=== PATIENT | female | born 1950 | race Two or more races ===

== ENCOUNTER 2018-11-13 13:55 | Outpatient (CLI) | payer MEDICARE | END 2018-11-13 23:59 | disposition home health service (06) | LOC: WOU 13:55 | PROVIDERS: ATTEND Podiatrist Foot & Ankle Surgery | DX: I89.0 Lymphedema, not elsewhere classified (principal); L97.812 Non-pressure chronic ulcer of other part of right lower leg with fat layer exposed; Z88.1 Allergy status to other antibiotic agents; Z91.018 Allergy to other foods; Z91.09 Other allergy status, other than to drugs and biological substances; Z87.891 Personal history of nicotine dependence; J44.9 Chronic obstructive pulmonary disease, unspecified; K50.90 Crohn's disease, unspecified, without complications; G40.909 Epilepsy, unspecified, not intractable, without status epilepticus; Z79.899 Other long term (current) drug therapy | CPT/HCPCS: 11042; A6402; Z7610 ==

== ENCOUNTER 2018-11-14 09:50 | Outpatient (CLI) | payer MEDICARE | END 2018-11-14 23:59 | disposition home or self-care (01) | LOC: WOU 09:50 | PROVIDERS: ATTEND Podiatrist Foot & Ankle Surgery | DX: S81.801D Unspecified open wound, right lower leg, subsequent encounter (principal); X58.XXXD Exposure to other specified factors, subsequent encounter; R93.6 Abnormal findings on diagnostic imaging of limbs | CPT/HCPCS: 93926-TC; 93971-TC ==

== ENCOUNTER 2018-11-22 12:25 | Outpatient (CLI) | payer MEDICARE | END 2018-11-22 23:59 | disposition home health service (06) | LOC: WOU 12:25 | PROVIDERS: ATTEND Podiatrist Foot & Ankle Surgery | DX: I89.0 Lymphedema, not elsewhere classified (principal); L97.812 Non-pressure chronic ulcer of other part of right lower leg with fat layer exposed; Z88.1 Allergy status to other antibiotic agents; Z91.018 Allergy to other foods | CPT/HCPCS: 11042; A6402 ==

== ENCOUNTER 2018-11-29 08:57 | Outpatient (CLI) | payer MEDICARE | END 2018-11-29 23:59 | disposition home health service (06) | LOC: WOU 08:57 | PROVIDERS: ATTEND Podiatrist Foot & Ankle Surgery | DX: I89.0 Lymphedema, not elsewhere classified (principal); L97.812 Non-pressure chronic ulcer of other part of right lower leg with fat layer exposed; Z88.1 Allergy status to other antibiotic agents; Z91.018 Allergy to other foods; Z91.048 Other nonmedicinal substance allergy status; Z79.899 Other long term (current) drug therapy | CPT/HCPCS: 11042; A6402 ==

== ENCOUNTER 2018-12-06 09:25 | Outpatient (CLI) | payer MEDICARE | END 2018-12-06 23:59 | disposition home health service (06) | LOC: WOU 09:25 | PROVIDERS: ATTEND Podiatrist Foot & Ankle Surgery | DX: I89.0 Lymphedema, not elsewhere classified (principal); L97.812 Non-pressure chronic ulcer of other part of right lower leg with fat layer exposed; R60.0 Localized edema | CPT/HCPCS: 11042; A6402 ==

== ENCOUNTER 2018-12-13 09:30 | Outpatient (CLI) | payer MEDICARE | END 2018-12-13 23:59 | disposition home health service (06) | LOC: WOU 09:30 | PROVIDERS: ATTEND Podiatrist Foot & Ankle Surgery | DX: I89.0 Lymphedema, not elsewhere classified (principal); L97.812 Non-pressure chronic ulcer of other part of right lower leg with fat layer exposed | CPT/HCPCS: 15271; A6402; Q4133 ==

== ENCOUNTER 2018-12-20 09:30 | Outpatient (CLI) | payer MEDICARE | END 2018-12-20 23:59 | disposition home health service (06) | LOC: WOU 09:30 | PROVIDERS: ATTEND Podiatrist Foot & Ankle Surgery | DX: I89.0 Lymphedema, not elsewhere classified (principal); L97.812 Non-pressure chronic ulcer of other part of right lower leg with fat layer exposed; K51.90 Ulcerative colitis, unspecified, without complications; I87.8 Other specified disorders of veins; Z79.899 Other long term (current) drug therapy | CPT/HCPCS: 15271; A6402; Q4195 ==

== ENCOUNTER 2018-12-27 09:12 | Outpatient (CLI) | payer MEDICARE | END 2018-12-27 23:59 | disposition home health service (06) | LOC: WOU 09:12 | PROVIDERS: ATTEND Podiatrist Foot & Ankle Surgery | DX: I89.0 Lymphedema, not elsewhere classified (principal); L97.812 Non-pressure chronic ulcer of other part of right lower leg with fat layer exposed; Z88.1 Allergy status to other antibiotic agents; Z91.048 Other nonmedicinal substance allergy status | CPT/HCPCS: 15271; A6402; Q4196 ==

== ENCOUNTER 2019-01-03 09:25 | Outpatient (CLI) | payer MEDICARE | END 2019-01-03 23:59 | disposition home health service (06) | LOC: WOU 09:25 | PROVIDERS: ATTEND Podiatrist Foot & Ankle Surgery | DX: I87.2 Venous insufficiency (chronic) (peripheral) (principal); I89.0 Lymphedema, not elsewhere classified; L97.812 Non-pressure chronic ulcer of other part of right lower leg with fat layer exposed; L25.9 Unspecified contact dermatitis, unspecified cause; Z79.899 Other long term (current) drug therapy | CPT/HCPCS: 11042; A6402 ==

== ENCOUNTER 2019-01-10 09:00 | Outpatient (CLI) | payer MEDICARE | END 2019-01-10 23:59 | disposition home or self-care (01) | LOC: WOU 09:00 | PROVIDERS: ATTEND Podiatrist Foot & Ankle Surgery | DX: L97.812 Non-pressure chronic ulcer of other part of right lower leg with fat layer exposed (principal); I89.0 Lymphedema, not elsewhere classified; M79.661 Pain in right lower leg | CPT/HCPCS: 15271; 36251; A6402; Q4196 ==

== ENCOUNTER 2019-01-17 09:10 | Outpatient (CLI) | payer MEDICARE | END 2019-01-17 23:59 | disposition home health service (06) | LOC: WOU 09:10 | PROVIDERS: ATTEND Podiatrist Foot & Ankle Surgery | DX: I89.0 Lymphedema, not elsewhere classified (principal); L97.912 Non-pressure chronic ulcer of unspecified part of right lower leg with fat layer exposed; I87.8 Other specified disorders of veins; K50.90 Crohn's disease, unspecified, without complications; Z79.899 Other long term (current) drug therapy; Z88.1 Allergy status to other antibiotic agents; Z91.018 Allergy to other foods | CPT/HCPCS: 15271; A6402; Q4196 ==

== ENCOUNTER 2019-01-31 09:30 | Outpatient (CLI) | payer MEDICARE | END 2019-01-31 23:59 | disposition home health service (06) | LOC: WOU 09:30 | PROVIDERS: ATTEND Podiatrist Foot & Ankle Surgery | DX: I89.0 Lymphedema, not elsewhere classified (principal); I87.311 Chronic venous hypertension (idiopathic) with ulcer of right lower extremity; L97.812 Non-pressure chronic ulcer of other part of right lower leg with fat layer exposed; Z87.891 Personal history of nicotine dependence; J44.9 Chronic obstructive pulmonary disease, unspecified; G40.909 Epilepsy, unspecified, not intractable, without status epilepticus; Z79.899 Other long term (current) drug therapy | CPT/HCPCS: 15271; Q4196; A6402 ==

== ENCOUNTER 2019-02-07 08:49 | Outpatient (CLI) | payer MEDICARE | END 2019-02-07 23:59 | disposition home health service (06) | LOC: WOU 08:49 | PROVIDERS: ATTEND Podiatrist Foot & Ankle Surgery | DX: I87.311 Chronic venous hypertension (idiopathic) with ulcer of right lower extremity (principal); L97.812 Non-pressure chronic ulcer of other part of right lower leg with fat layer exposed; I89.0 Lymphedema, not elsewhere classified; K50.00 Crohn's disease of small intestine without complications; J44.9 Chronic obstructive pulmonary disease, unspecified; G40.909 Epilepsy, unspecified, not intractable, without status epilepticus; Z87.891 Personal history of nicotine dependence; G62.9 Polyneuropathy, unspecified; Z79.899 Other long term (current) drug therapy | CPT/HCPCS: 11042; A6402 ==

== ENCOUNTER 2019-02-14 08:35 | Outpatient (CLI) | payer MEDICARE | END 2019-02-14 23:59 | disposition home health service (06) | LOC: WOU 08:35 | PROVIDERS: ATTEND Podiatrist Foot & Ankle Surgery | DX: I89.0 Lymphedema, not elsewhere classified (principal); L97.812 Non-pressure chronic ulcer of other part of right lower leg with fat layer exposed; K50.90 Crohn's disease, unspecified, without complications | CPT/HCPCS: 11042; A6402 ==

== ENCOUNTER 2019-02-18 08:15 | Outpatient (CLI) | payer MEDICARE | END 2019-02-18 23:59 | disposition home health service (06) | LOC: WOU 08:15 | PROVIDERS: ATTEND Podiatrist Foot & Ankle Surgery | DX: I89.0 Lymphedema, not elsewhere classified (principal); L97.812 Non-pressure chronic ulcer of other part of right lower leg with fat layer exposed; L29.9 Pruritus, unspecified; Z79.899 Other long term (current) drug therapy; Z88.1 Allergy status to other antibiotic agents; Z91.09 Other allergy status, other than to drugs and biological substances | CPT/HCPCS: 11042; A6402 ==

== ENCOUNTER 2019-02-28 10:15 | Outpatient (CLI) | payer MEDICARE | END 2019-02-28 23:59 | disposition home health service (06) | LOC: WOU 10:15 | PROVIDERS: ATTEND Podiatrist Foot & Ankle Surgery | DX: L97.812 Non-pressure chronic ulcer of other part of right lower leg with fat layer exposed (principal); I89.0 Lymphedema, not elsewhere classified; K50.90 Crohn's disease, unspecified, without complications | CPT/HCPCS: 11042; A6402 ==

== ENCOUNTER 2019-03-07 09:35 | Outpatient (CLI) | payer MEDICARE | END 2019-03-07 23:59 | disposition home health service (06) | LOC: WOU 09:35 | PROVIDERS: ATTEND Podiatrist Foot & Ankle Surgery | DX: L97.812 Non-pressure chronic ulcer of other part of right lower leg with fat layer exposed (principal); I89.0 Lymphedema, not elsewhere classified | CPT/HCPCS: 11042; A6402 ==

== ENCOUNTER 2019-03-14 08:40 | Outpatient (CLI) | payer MEDICARE | END 2019-03-14 23:59 | disposition home health service (06) | LOC: WOU 08:40 | PROVIDERS: ATTEND Podiatrist Foot & Ankle Surgery | DX: I89.0 Lymphedema, not elsewhere classified (principal); L97.812 Non-pressure chronic ulcer of other part of right lower leg with fat layer exposed | CPT/HCPCS: 11042; A6402 ==

== ENCOUNTER 2019-03-28 11:50 | Outpatient (CLI) | payer MEDICARE | END 2019-03-28 23:59 | disposition home health service (06) | LOC: WOU 11:50 | PROVIDERS: ATTEND Podiatrist Foot & Ankle Surgery | DX: I89.0 Lymphedema, not elsewhere classified (principal); L97.812 Non-pressure chronic ulcer of other part of right lower leg with fat layer exposed; K51.90 Ulcerative colitis, unspecified, without complications | CPT/HCPCS: 11042; A6402 ==

== ENCOUNTER 2019-04-04 08:15 | Outpatient (CLI) | payer MEDICARE | END 2019-04-04 23:59 | disposition home health service (06) | LOC: WOU 08:15 | PROVIDERS: ATTEND Podiatrist Foot & Ankle Surgery | DX: I89.0 Lymphedema, not elsewhere classified (principal); I87.311 Chronic venous hypertension (idiopathic) with ulcer of right lower extremity; L97.912 Non-pressure chronic ulcer of unspecified part of right lower leg with fat layer exposed; Z87.891 Personal history of nicotine dependence; Z86.718 Personal history of other venous thrombosis and embolism; G40.909 Epilepsy, unspecified, not intractable, without status epilepticus; K50.00 Crohn's disease of small intestine without complications; Z79.899 Other long term (current) drug therapy | CPT/HCPCS: 11042; A6402 ==

== ENCOUNTER 2019-04-11 09:19 | Outpatient (CLI) | payer MEDICARE | END 2019-04-11 23:59 | disposition home health service (06) | LOC: WOU 09:19 | PROVIDERS: ATTEND Podiatrist Foot & Ankle Surgery | DX: I87.311 Chronic venous hypertension (idiopathic) with ulcer of right lower extremity (principal); L97.912 Non-pressure chronic ulcer of unspecified part of right lower leg with fat layer exposed; I89.0 Lymphedema, not elsewhere classified; K50.00 Crohn's disease of small intestine without complications; I87.2 Venous insufficiency (chronic) (peripheral); J44.9 Chronic obstructive pulmonary disease, unspecified; Z86.718 Personal history of other venous thrombosis and embolism; Z87.891 Personal history of nicotine dependence; Z79.899 Other long term (current) drug therapy | CPT/HCPCS: 11042; A6402 ==

== ENCOUNTER 2019-04-22 10:15 | Outpatient (CLI) | payer MEDICARE | END 2019-04-22 23:59 | disposition home health service (06) | LOC: WOU 10:15 | PROVIDERS: ATTEND Podiatrist Foot & Ankle Surgery | DX: I89.0 Lymphedema, not elsewhere classified (principal); L97.812 Non-pressure chronic ulcer of other part of right lower leg with fat layer exposed; S91.114D Laceration without foreign body of right lesser toe(s) without damage to nail, subsequent encounter; X58.XXXD Exposure to other specified factors, subsequent encounter; K50.90 Crohn's disease, unspecified, without complications; Z79.899 Other long term (current) drug therapy | CPT/HCPCS: 11042; A6402 ==

== ENCOUNTER 2019-05-02 08:45 | Outpatient (CLI) | payer MEDICARE | END 2019-05-02 23:59 | disposition home health service (06) | LOC: WOU 08:45 | PROVIDERS: ATTEND Podiatrist Foot & Ankle Surgery | DX: I89.0 Lymphedema, not elsewhere classified (principal); L97.812 Non-pressure chronic ulcer of other part of right lower leg with fat layer exposed; K50.90 Crohn's disease, unspecified, without complications | CPT/HCPCS: 17250; A6402 ==

== ENCOUNTER 2019-05-09 09:15 | Outpatient (CLI) | payer MEDICARE | END 2019-05-09 23:59 | disposition home health service (06) | LOC: WOU 09:15 | PROVIDERS: ATTEND Podiatrist Foot & Ankle Surgery | DX: I89.0 Lymphedema, not elsewhere classified (principal); L97.812 Non-pressure chronic ulcer of other part of right lower leg with fat layer exposed; Z87.19 Personal history of other diseases of the digestive system | CPT/HCPCS: 11042 ==

== ENCOUNTER 2019-05-16 10:20 | Outpatient (CLI) | payer MEDICARE | END 2019-05-16 23:59 | disposition home or self-care (01) | LOC: WOU 10:20 | PROVIDERS: ATTEND Podiatrist Foot & Ankle Surgery | DX: I89.0 Lymphedema, not elsewhere classified (principal); L97.812 Non-pressure chronic ulcer of other part of right lower leg with fat layer exposed; S81.811A Laceration without foreign body, right lower leg, initial encounter; W19.XXXA Unspecified fall, initial encounter; Y92.89 Other specified places as the place of occurrence of the external cause | CPT/HCPCS: 17250 ==

== ENCOUNTER 2019-05-23 09:00 | Outpatient (CLI) | payer MEDICARE | END 2019-05-23 23:59 | disposition home health service (06) | LOC: WOU 09:00 | PROVIDERS: ATTEND Podiatrist Foot & Ankle Surgery | DX: I87.301 Chronic venous hypertension (idiopathic) without complications of right lower extremity (principal); I89.0 Lymphedema, not elsewhere classified; K50.00 Crohn's disease of small intestine without complications; Z87.891 Personal history of nicotine dependence; Z91.81 History of falling; G40.909 Epilepsy, unspecified, not intractable, without status epilepticus; J44.9 Chronic obstructive pulmonary disease, unspecified | CPT/HCPCS: G0463 ==